=== PATIENT | female | born 1940 | race Caucasian/White ===

== ENCOUNTER 2017-06-03 04:27 | Inpatient (IN) ==
--- NOTE | 2017-05-29 11:10 | EKG Report ---
Test Performed on : 05/29/2017 10:33:26 AM Test Reason : PAT Blood Pressure : / mmHG Vent. Rate : 087 BPM Atrial Rate : 087 BPM P-R Int : 142 ms QRS Dur : 082 ms QT Int : 364 ms P-R-T Axes : 070 069 076 degrees QTc Int : 438 ms Normal sinus rhythm. Nonspecific T wave abnormality aVL Normal ECG No previous ECGs available Confirmed by Roney Saldivar DO ([id number]) on 05/31/2017 1:17:46 PM
[2017-05-29 11:35] LABS: URINE MICRO REVIEW NEEDED? NO; URINE SOURCE CLEAN CATCH
[2017-05-29 11:35] LABS: MANUAL DIFF NEEDED? NO
[2017-05-29 11:39] LABS: BASO% 0.7 % (0.0-0.8); EOS# 0.18 X1000 (0.0-0.7); EOS% 1.8 % (0.0-10.0); HEMATOCRIT 41.3 % (37.0-47.0); HEMOGLOBIN 14.1 g/dL (12.0-16.0); LYMPH# 2.45 X1000 (1.2-3.4); LYMPH% 24.4 % (20.5-51.1); MCH 31.7 PG (27-31); MCHC 34.1 g/dL (33-37); MCV 92.8 FL (81-99); MONO# 0.62 X1000 (0.11-0.59); MONO% 6.2 % (1.7-9.3); NEUT% 66.9 % (42.2-75.2); PLT 420 X1000 (130-400); RBC 4.45 XMIL (4.2-5.4)
[2017-05-29 11:40] LABS: BILIRUBIN URINE NEGATIVE (NEGATIVE); BLOOD URINE NEGATIVE (NEGATIVE); COLOR STRAW; GLUCOSE URINE NEGATIVE (NEGATIVE); LEUKOCYTES URINE NEGATIVE (NEGATIVE); NITRITE URINE NEGATIVE (NEGATIVE); PH URINE 6.5; PROTEIN URINE NEGATIVE (NEGATIVE); SP GRAVITY URINE 1.001; TURBIDITY URINE CLEAR (CLEAR); UR EPITHELIAL CELLS <10 /HPF (<10); URINE BACTERIA NEGATIVE /HPF; URINE RBC <10 /HPF (<10); URINE WBC <10 /HPF (<10); UROBILINOGEN URINE NORMAL (NORMAL)
[2017-05-29 12:01] LABS: AGAP 12; BUN 11 mg/dL (8-22); CALCIUM 9.9 mg/dL (8.8-10.2); CHLORIDE 102 mmol/L (98-107); COSMO 282; POTASSIUM 4.5 mmol/L (3.5-5.1); SODIUM 142 mmol/L (136-145); TCO2 28 mmol/L (25-35)
[2017-05-29 13:02] LABS: INR 0.97; PROTIME 10.2 Seconds (9.2-11.7); PTT 26.8 Seconds (22.0-36.0)
[2017-06-03] MEDS ORDERED: REGLAN ONE (09:50)
[2017-06-03] MEDS ORDERED: PEPCID ONE (09:50)
[2017-06-03] MEDS ORDERED: COLACE ONE (09:50)
[2017-06-03] MEDS ORDERED: KEFZOL 1 GM/D5W 1 GM/50 ML IVPB ONE (09:51)
[2017-06-03] MEDS ORDERED: LR 1,000 ML ONE (09:51)
[2017-06-03] MEDS ORDERED: LYRICA ONE (09:51)
[2017-06-03] MEDS ORDERED: DIPRIVAN 1% 500 MG/50 ML BOTTLE ONE (10:03)
[2017-06-03] MEDS ORDERED: XYLOCAINE-MPF 2% ONE ×2 (10:06→12:48)
[2017-06-03] MEDS ORDERED: MARCAINE 0.25% PF ONE (10:48)
[2017-06-03] MEDS ORDERED: DURAMORPH ONE (10:48)
[2017-06-03] MEDS ORDERED: TORADOL ONE (10:48)
[2017-06-03] MEDS ORDERED: CYKLOKAPRON 1,000 MG/NS 1,000 MG/100 ML IVPB ONE ×2 (10:49→10:50)
[2017-06-03] MEDS ORDERED: EXPAREL 1.3% ONE (10:49)
[2017-06-03] MEDS ORDERED: SODIUM CHLORIDE 0.9% ONE (10:49)
[2017-06-03] MEDS ORDERED: VANCOMYCIN ONE (10:49)
[2017-06-03] MEDS ORDERED: NEOSPORIN G.U. IRRIGANT ONE (10:49)
[2017-06-03] MEDS ORDERED: FENTANYL ONE (11:09)
[2017-06-03] MEDS ORDERED: STERILE WATER INJ. ONE (11:36)
[2017-06-03] MEDS ORDERED: NEO-SYNEPHRINE ONE (11:36)
[2017-06-03 12:16] LABS: URINE MICRO REVIEW NEEDED? NO; URINE SOURCE CATH
[2017-06-03] MEDS ORDERED: DECADRON ONE (12:18)
[2017-06-03] MEDS ORDERED: ZOFRAN ONE (12:18)
[2017-06-03 12:35] LABS: BILIRUBIN URINE NEGATIVE (NEGATIVE); BLOOD URINE NEGATIVE (NEGATIVE); COLOR STRAW; GLUCOSE URINE NEGATIVE (NEGATIVE); LEUKOCYTES URINE NEGATIVE (NEGATIVE); NITRITE URINE NEGATIVE (NEGATIVE); PROTEIN URINE NEGATIVE (NEGATIVE); SP GRAVITY URINE 1.003; TURBIDITY URINE CLEAR (CLEAR); UR EPITHELIAL CELLS <10 /HPF (<10); URINE BACTERIA NEGATIVE /HPF; URINE RBC <10 /HPF (<10); URINE WBC <10 /HPF (<10); UROBILINOGEN URINE NORMAL (NORMAL)
[2017-06-03] MEDS ORDERED: DIPRIVAN 1% ONE (12:49)
[2017-06-03] MEDS ORDERED: OFIRMEV 1000 MG/ISOTONIC SOLN 1,000 MG/100 ML BOTTLE ONE (13:28)
[2017-06-03] MEDS ORDERED: NS 1,000 ML ONE (14:24)
[2017-06-03] MEDS ORDERED: MORPHINE IV PRN (15:15)
[2017-06-03] MEDS ORDERED: AMBIEN PO PRN (15:15)
[2017-06-03] MEDS ORDERED: ZOFRAN IV PRN (15:15)
[2017-06-03] MEDS ORDERED: MILK OF MAGNESIA PO PRN (15:15)
[2017-06-03] MEDS ORDERED: XANAX PO PRN (15:44)
[2017-06-03] MEDS: TYLENOL PO SCH ×2 (16:23→20:36)
[2017-06-03] MEDS: ULTRAM PO SCH ×2 (16:24→20:36)
[2017-06-03] MEDS: KEFZOL 1 GM/D5W 1 GM/50 ML IVPB IV SCH (18:17)
--- NOTE | 2017-06-03 18:56 | OPERATIVE NOTE ---
PROCEDURE DATE: 06/03/2017 PREOPERATIVE DIAGNOSIS: Right knee valgus degenerative joint disease. POSTOPERATIVE DIAGNOSIS: 1. Right knee valgus degenerative joint disease. 2. Medial femoral condyle fracture. PROCEDURE: Right total knee arthroplasty with open reduction and internal fixation of the medial femoral condyle fracture. ANESTHESIA: Spinal. SURGEON: Mario Smith MD. COMMERCIAL LOAN MANAGER: Jenna Coyle PA-C who was present throughout the case and assisted with preparation of the bone for the implants, assisting with the implant placement, as well as assisting with open reduction internal fixation of the medial femoral condyle fracture and wound closure. Her assistance was critical throughout the case. SECOND WIRE REPAIRER: Tang Hopper RN. COMPLICATIONS: Medial femoral condyle fracture. TOURNIQUET TIME: Approximately 2 hours. DESCRIPTION OF PROCEDURE: The patient brought to the operative suite and placed in the supine position. After successful administration of general anesthesia, a well-padded tourniquet was placed on right proximal thigh. The right lower extremity was prepped and draped in usual sterile fashion. The leg was exsanguinated. Tourniquet insufflated to 350 torr. A longitudinal incision was made beginning at the superior pole of the patella and extending distally to the tibia tuberosity, dissected sharply through the skin. Full-thickness skin flaps were elevated medially and laterally. A medial arthrotomy was made with a vastus snip. The medial capsule was elevated off the medial tibial plateau. The prepatellar fat pad, ACL, PCL, medial meniscus, lateral meniscus were excised. A drill was entered in the center of distal femur. An intramedullary guide was placed. Distal cutting block was pinned in place. The distal cut was made with the oscillating saw. The femur was sized to a size 5. A size 5 cutting block was pinned in place. Anterior cuts, chamfer cuts, and posterior condylar cuts were made with the oscillating saw. Marginal osteophytes removed with rongeur. A box cutting block was pinned in place. A box cut was made with box osteotome and oscillating saw. The posterior condyle osteophytes removed with curved osteotome and rongeur. Attention was then directed to the tibia. A drill was entered in the center of the tibia. An intramedullary guide was placed. The line was checked with drop jono, referencing off the anterior cortex of the tibia and the second ray of the foot. Then a tibial cutting block was pinned in place and then the articular surface of the tibial plateau was removed with an oscillating saw. Flexion and extension gaps were checked and balanced. She was tightly laterally. A lateral release was performed and she was balanced in flexion and extension at 14 mm. The tibia was sized to size 5. A size 5 guide was used for the fin punch. The tibial trial, femoral trial, and 14 mm articular insert were placed and taken through range of motion and found to have excellent alignment, balancing, range of motion. Attention was then directed to the patella. Nine millimeters of the articular surface of the patella were removed with oscillating saw. The patella was sized to a size 35. A size 35 guide was used drill peg holes. Lateral facet was chamfered 30 to 45 degrees. Patella trial was placed and taken through range of motion and found to have excellent patella tracking. All trials were then removed. The knee was copiously irrigated and dried, being certain all bone debris was removed. The tibial component, femoral component, patellar component were cemented in place, excess cement being removed with a [place]. When we were impacting the femoral component she developed a crack in her medial femoral condyle. This was held in place with a tenaculum clamp during the cement process. Once all of the excess cement was removed and the cement had hardened, we removed excess cement again with the osteotome and the trial articular insert was removed. The knee was copiously irrigated being certain all bone and cement were removed and the definitive articular insert was placed. Attention was then directed to the medial femoral condyle fracture. A Synthes periarticular plate that was precontoured for the tibia fit nicely on the medial femoral condyle of the femur. Therefore it was placed with bicortical screws, 4 of them proximally and then 4 distally across the fracture with cancellous screws. Excellent reduction of the fracture was obtained and it was held in place well. The knee was copiously infiltrated with Exparel, including the posterior capsule, anterior capsule, medial and lateral collateral ligaments, anterior musculature. A drain was placed exiting superolaterally and buried in the lateral gutter. The medial arthrotomy was closed with a 0 V-Loc suture. The skin edge approximated with 2-0 Vicryl. A sterile dressing was applied. The patient tolerated the procedure well without complication. At the end the procedure, all counts were correct. The patient was transferred to the recovery room in stable condition. cc: Mario Smith MD MTDD
[2017-06-03] MEDS: LYRICA PO SCH (20:36)
[2017-06-03] MEDS: NS 1,000 ML IV SCH (20:36)
[2017-06-03] MEDS: COLACE PO SCH (20:36)
[2017-06-03] MEDS: PERIDEX MT SCH (20:36)
[2017-06-03] MEDS: LIPITOR PO SCH (22:20)
[2017-06-03] MEDS: NORVASC PO SCH (22:20)
[2017-06-03] MEDS: RESTORIL PO SCH (22:28)
[2017-06-04] MEDS: TYLENOL PO SCH ×4 (03:38→20:43)
[2017-06-04] MEDS: ULTRAM PO SCH ×4 (03:38→20:42)
[2017-06-04] MEDS: KEFZOL 1 GM/D5W 1 GM/50 ML IVPB IV SCH (03:38)
[2017-06-04] MEDS ORDERED: XANAX PO PRN (04:15)
[2017-06-04] MEDS: RESTORIL PO SCH ×2 (05:15→22:39)
[2017-06-04] MEDS: NS 1,000 ML IV SCH (05:15)
[2017-06-04 06:02] LABS: HEMATOCRIT 32.4 % (37.0-47.0); HEMOGLOBIN 10.9 g/dL (12.0-16.0)
[2017-06-04] MEDS: XARELTO PO SCH (06:12)
[2017-06-04] MEDS: SYNTHROID PO SCH (06:13)
[2017-06-04 06:18] LABS: AGAP 11; BUN 6 mg/dL (8-22); CALCIUM 8.7 mg/dL (8.8-10.2); CHLORIDE 105 mmol/L (98-107); COSMO 279; POTASSIUM 3.9 mmol/L (3.5-5.1); SODIUM 140 mmol/L (136-145); TCO2 24 mmol/L (25-35)
--- NOTE | 2017-06-04 07:57 | PROGRESS NOTE ---
DATE: 06/04/2017 SUBJECTIVE: Ms. Parks is a 77-year-old female who is postoperative day 1 from a right total knee arthroplasty with open reduction internal fixation of the medial femoral condyle fracture. She had has no new complaints. OBJECTIVE: She is a well-developed, well-nourished female. She is alert, oriented, and cooperative with the examination. She is in no acute distress. Her vital signs are stable. She is afebrile. Her hemoglobin is 10.9, her hematocrit is 32.4. She had 5 mL of drainage from her Hemovac. Her wound is clean, dry, and intact without sign of infection. Her calf is soft, and her leg is neurovascularly intact. ASSESSMENT: Postoperative day 1 from a right total knee arthroplasty with open reduction and internal fixation of the medial femoral condyle fracture. PLAN: We will have her start working with Physical Therapy today, and she will be touchdown weightbearing as tolerated. We will change her dressing today, and remove her Hemovac drain. She will be transferred to rehab later this week. Dictated by MARY JANE Roman for Mario Smith MD cc: MARY JANE Roman MD
[2017-06-04] MEDS ORDERED: PRILOSEC PO SCH (09:00)
[2017-06-04] MEDS ORDERED: NORVASC PO SCH (09:00)
[2017-06-04] MEDS ORDERED: DECADRON IV ONE (09:00)
[2017-06-04] MEDS ORDERED: LIPITOR PO SCH (09:00)
[2017-06-04] MEDS: MIRALAX PO SCH (09:17)
[2017-06-04] MEDS: PERIDEX MT SCH ×2 (09:17→20:44)
[2017-06-04] MEDS: COLACE PO SCH ×2 (09:18→20:44)
[2017-06-04] MEDS: BENTYL PO SCH (09:18)
[2017-06-04] MEDS: LYRICA PO SCH ×2 (09:19→20:43)
[2017-06-04] MEDS: VITAMIN D PO SCH (09:20)
[2017-06-04] MEDS: MOBIC PO SCH (09:21)
[2017-06-04] MEDS: LIPITOR PO SCH (20:43)
[2017-06-04] MEDS: NORVASC PO SCH (20:44)
[2017-06-05] MEDS: ULTRAM PO SCH ×4 (04:06→20:39)
[2017-06-05] MEDS: TYLENOL PO SCH ×4 (04:06→20:36)
[2017-06-05 06:07] LABS: HEMATOCRIT 25.8 % (37.0-47.0); HEMOGLOBIN 8.6 g/dL (12.0-16.0)
[2017-06-05] MEDS: XARELTO PO SCH (06:47)
[2017-06-05] MEDS: SYNTHROID PO SCH (06:47)
[2017-06-05] MEDS: PRILOSEC PO SCH (06:47)
--- NOTE | 2017-06-05 07:39 | PROGRESS NOTE ---
DATE: 06/05/2017 SUBJECTIVE: Nerissa Parks is a 77-year-old female, who is postoperative day 2 from a right total knee arthroplasty. She has no complaints. OBJECTIVE: Her vital signs are stable. She is afebrile. Her wound is clean, dry, intact without sign of infection. She has walked 15 feet. LABORATORY DATA: Her hematocrit is 25.8. ASSESSMENT: Stable right total knee arthroplasty. PLAN: We will continue working with Physical Therapy. She will likely go to rehab tomorrow. cc: Mario Smith MD
[2017-06-05] MEDS: PERIDEX MT SCH ×2 (10:46→20:36)
[2017-06-05] MEDS: BENTYL PO SCH (10:47)
[2017-06-05] MEDS: MOBIC PO SCH (10:47)
[2017-06-05] MEDS: MIRALAX PO SCH (10:47)
[2017-06-05] MEDS: VITAMIN D PO SCH (10:48)
[2017-06-05] MEDS: LYRICA PO SCH (10:48)
[2017-06-05] MEDS: COLACE PO SCH ×2 (10:48→20:37)
[2017-06-05] MEDS: OXY IR PO PRN (22:33)
[2017-06-05] MEDS: LIPITOR PO SCH (22:34)
[2017-06-05] MEDS: RESTORIL PO SCH (22:34)
[2017-06-05] MEDS: NORVASC PO SCH (22:34)
[2017-06-06] MEDS ORDERED: ULTRAM PO PRN (00:01)
[2017-06-06] MEDS: LYRICA PO SCH ×2 (01:17→08:07)
[2017-06-06] MEDS: OXY IR PO PRN (02:14)
[2017-06-06 06:02] LABS: HEMATOCRIT 21.3 % (37.0-47.0); HEMOGLOBIN 7.1 g/dL (12.0-16.0)
[2017-06-06] MEDS: SYNTHROID PO SCH (06:33)
[2017-06-06] MEDS: PRILOSEC PO SCH (06:33)
[2017-06-06] MEDS: XARELTO PO SCH (06:33)
[2017-06-06] MEDS: MIRALAX PO SCH ×2 (06:33→08:05)
[2017-06-06] MEDS: TYLENOL PO SCH (07:33)
[2017-06-06] MEDS: MOBIC PO SCH (08:06)
[2017-06-06] MEDS: VITAMIN D PO SCH (08:06)
[2017-06-06] MEDS: BENTYL PO SCH (08:06)
[2017-06-06] MEDS: COLACE PO SCH (08:07)
[2017-06-06] MEDS: PERIDEX MT SCH (08:07)
--- NOTE | 2017-06-06 09:11 | Diag Imaging Result Doc PS360 ---
CHEST-PORTABLE - 06/06/2017 INDICATION: rehab TECHNIQUE: COMPARISON: None FINDINGS: There are some calcified granulomas in the right lung apex. No focal infiltrates, pneumothorax, or pleural effusion. Heart size and pulmonary vascularity is normal. IMPRESSION: Negative exam. Electronically signed by Cecil Alexander 06/06/2017 9:08 AM
--- NOTE | 2017-06-06 10:05 | DISCHARGE SUMMARY ---
ADMISSION DATE: 06/03/2017 DISCHARGE DATE: 06/06/2017 DISCHARGE DIAGNOSES: 1. Right knee valgus degenerative joint disease. 2. Medical femoral condyle fracture, status post right total knee arthroplasty with open reduction and internal fixation of the medial femoral condyle fracture. DISCHARGE MEDICATIONS: See discharge medication list. DISPOSITION: The patient is discharged to rehab. DISCHARGE INSTRUCTIONS: Instructions for total knee arthroplasty protocol. She will be touchdown weightbearing with instructions to return to see Dr. Smith next . HOSPITAL COURSE: On the date of admission, the patient underwent a right total knee arthroplasty with an open reduction and internal fixation of the medial femoral condyle fracture. Her postoperative course was unremarkable. At discharge, she is afebrile. Tolerating a regular diet. Ambulating well with physical therapy. Her hemoglobin is 7.1, her hematocrit is 21.3. We will give her 2 units of packed red blood cells before she is discharged to rehab. Her wound is clean, dry, and intact without sign of infection. She is discharged to rehab in stable condition with instructions to follow up as described above. Dictated by MARY JANE Roman for Mario Smith MD cc: MARY JANE Roman MD
[2017-06-06 14:39] VITALS: BP 147/54
== END 2017-06-06 15:51 ==
LOC: SURHOLD 04:27 → 4N 12:27
PROVIDERS: ADMIT Orthopaedic Surgery; ATTEND Orthopaedic Surgery